=== PATIENT | female | born 1970 | race Caucasian/White ===

== ENCOUNTER 2018-01-07 05:47 | Day surgery (SDC) | payer OTHER ==
[2018-01-07] MEDS ORDERED: ceFAZolin 2 GM/SWFI 2 GM/20 ML SYR IVP ONE (06:02)
[2018-01-07] MEDS ORDERED: LR 1,000 ML IV SCH (06:02)
[2018-01-07] MEDS: ceFAZolin 2 GM/DEXTROSE 100 ML IV ONE ×2 (06:46→07:27)
[2018-01-07] MEDS ORDERED: EPINEPHrine 1 MG/ML INJ ONE (06:47)
[2018-01-07] MEDS ORDERED: BUPIVACAINE 0.5% 30 ML SDV ONE (06:48)
--- NOTE | 2018-01-07 06:58 | PDHPUP ---
History & Physical Update H&P update statement: This history and physical update is based on an assessment of the patient which was completed after admission or registration (within 24 hours), but prior to the surgery/procedure. H&P update: H&P reviewed & patient examined, no change in patient's condition since H&P completed
--- NOTE | 2018-01-07 06:59 | PDANEPAE ---
ANE History of Present Illness L knee arthroscopy ANE Past Medical History - Cardiovascular History Hx Hypertension: No Hx Arrhythmias: No Hx Chest Pain: No Hx Coronary Artery / Peripheral Vascular Disease: No Hx CHF / Valvular Disease: No Hx Palpitations: No - Pulmonary History Hx COPD: No Hx Asthma/Reactive Airway Disease: No Hx Recent Upper Respiratory Infection: No Hx Oxygen in Use at Home: No Hx Sleep Apnea: No Pulmonary History Comment: Pt. reports wheezing with colds, improved with Albuterol - Neurologic History Hx Cerebrovascular Accident: No Hx Seizures: No Hx Dementia: No - Endocrine History Hx Diabetes: No Obesity: severe - Renal History Hx Renal Disorders: No - Liver History Hx Hepatic Disorders: No - Neurological & Psychiatric Hx Hx Neurological and Psychiatric Disorders: Yes Neurological / Psychiatric History Comment: Depression, on Bupropion - Cancer History Hx Cancer: Yes Cancer History Comment: skin cancer - Congenital Disorder History Hx Congenital Disorders: No - GI History GERD: no Hx Gastrointestinal Disorders: No - Chronic Pain History Chronic Pain: No - Surgical History Prior Surgeries: right knee scope 1986. "bump" removed from forehead ANE Review of Systems Review of Systems: - Exercise capacity METS (RN): 4 METS ANE Patient History - Allergies Allergies/Adverse Reactions: No Allergies [NKDA] Allergy (Verified 01/06/18 16:44) - Home Medications Home Medications: Ibuprofen [Advil] 200 mg PO PRN PRN 01/07/18 [Last Taken 1 Week Ago ~12/31/17] - NPO status NPO Since - Liquids (Date): 01/06/18 NPO Since - Liquids (Time): 22:00 NPO Since - Solids (Date): 01/06/18 NPO Since - Solids (Time): 20:15 - Anes Hx Anes Hx: no prior problems - Smoking Hx Smoking Status: Never smoked Marijuana use: No - Alcohol Use Alcohol Use: Rarely - Family Anes Hx Family Anes Hx: none Family Hx Anesthesia Complications: none. ANE Labs/Vital Signs - Vital Signs Blood Pressure: 157/96 Heart Rate: 100 Respiratory Rate: 18 O2 Sat (%): 95 Height: 172.72 cm Weight: 136.078 kg ANE Physical Exam - Airway Neck exam: FROM Mallampati Score: Class 1 Mouth exam: normal dental/mouth exam - Pulmonary Pulmonary: clear to auscultation - Cardiovascular Cardiovascular: regular rate and rhythym - ASA Status ASA Status: II ANE Anesthesia Plan Anesthesia Plan: general endotracheal anesthesia (Increased risk of pulmonary complications discussed.)
[2018-01-07] MEDS ORDERED: MIDAZOLAM 2 MG/2 ML VIAL ONE (07:04)
[2018-01-07] MEDS ORDERED: MIDAZOLAM 2 MG/2 ML VIAL IVP ONE (07:04)
[2018-01-07] MEDS ORDERED: REMIFENTANIL HCL 1 MG VIAL ONE ×2 (07:10→08:13)
[2018-01-07] MEDS ORDERED: fentaNYL 100 MCG/2 ML INJ ONE (07:10)
[2018-01-07] MEDS ORDERED: PROPOFOL/EMULSION 500 MG/50 ML BOTTLE IV ONE (07:10)
[2018-01-07] MEDS ORDERED: ONDANSETRON 4 MG/2 ML VIAL IVP PRN ×2 (07:50→08:39)
[2018-01-07] MEDS ORDERED: ALBUTEROL 3 ML DEYVIAL IH PRN (07:50)
[2018-01-07] MEDS ORDERED: oxyCODONE IR 5 MG TAB PO PRN (07:50)
[2018-01-07] MEDS ORDERED: NALOXONE HCL 0.4 MG/ML INJ IVP PRN (07:50)
[2018-01-07] MEDS ORDERED: ACETAMINOPHEN 500 MG TAB PO PRN (07:50)
[2018-01-07] MEDS ORDERED: HYDROCODONE/APAP 5/325 TAB PO PRN (07:50)
[2018-01-07] MEDS ORDERED: fentaNYL 100 MCG/2 ML INJ IVP PRN (07:50)
[2018-01-07] MEDS ORDERED: PROPOFOL 200 MG/20 ML VIAL ONE (08:13)
[2018-01-07] MEDS ORDERED: SUGAMMADEX SODIUM 200 MG/2 ML VIAL IVP ONE (08:22)
[2018-01-07] MEDS ORDERED: ONDANSETRON 4 MG/2 ML VIAL ONE (08:28)
[2018-01-07] MEDS ORDERED: ONDANSETRON DISINTEGRATING 4 MG TAB PO PRN (08:39)
[2018-01-07] MEDS ORDERED: OXYCODONE/APAP 5/325 TAB PO PRN (08:39)
--- NOTE | 2018-01-07 08:44 | POSTOPPROG ---
Post Op Note Date of Operation: 01/07/18 Surgeon: Lakesha Lozano [facility] Coordinator: Sharon Villareal Anesthesiologist: Dr. Goldsmith Anesthesia: GET(General Endotracheal) Pre-op Diagnosis: left knee pain, meniscal tear Post-op Diagnosis: bilateral meniscal tears Procedure: partial bilateral meniscectomies Inf/Abcess present in the surg proc area at time of surgery?: No EBL: Minimal Complications: none
--- NOTE | 2018-01-07 08:46 | SOAPPROG ---
SOAP Progress Note Assessment/Plan: Assessment/Plan: 47y/o female s/p left knee partial bilateral meniscectomies - orders as written - elevate and ice extremity - home when discharge criteria met - post-operative activity and care discussed - call with issues or concerns 01/07/18 08:44 Subjective: No pain, doing well Objective: Vital Signs Temp Pulse Resp BP Pulse Ox 37.0 C 100 18 157/96 H 95 01/07/18 06:13 01/07/18 07:47 01/07/18 07:47 01/07/18 07:47 01/07/18 07:47 NAD, well appearing, no distress EOMi, face symmetric MAEx4 incisions clean, dressed ICD10 Worksheet Patient Problems: Problems Problem Status Onset Meniscal injury Acute - ICD10 Problem Qualifiers (1) Meniscal injury
[2018-01-07 09:14] VITALS: BP 139/72
--- NOTE | 2018-01-07 09:25 | GOP ---
[f rep st] OPERATIVE REPORT DATE OF OPERATION: 01/07/2018 SURGEON: Lakesha Lozano MD GLOBAL LOGISTICS MANAGER: Sharon Villareal PMariposaAMariposa-Cherri. ANESTHESIA: General. PREOPERATIVE DIAGNOSIS: Bilateral meniscus tears, early degenerative arthritis, left knee. POSTOPERATIVE DIAGNOSIS: Bilateral meniscus tears, early degenerative arthritis, left knee. PROCEDURE PERFORMED: Arthroscopy, partial bilateral meniscectomy, left knee. FINDINGS: The diagnostic arthroscopy of the left knee was performed with the following findings. Th e patient had early degenerative change in the patellofemoral joint. 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 There were some areas of full-thickness cartilage loss. The medial compartment was entered and the patient had grade 2 chondromalacia of the medial femoral condyle and medial tibial plateau. There was a tear in the posterior horn of the medial meniscus. This was trimmed back to a stable rim. Approximately 25% of the medial meniscus was excised. The meniscal tear extended to the posterior root. The ACL was visualized in the intercondylar notch and noted to be intact. The lateral compartment was entered an d the patient was noted to have a bucket-handle tear of the anterior horn of the lateral meniscus. T his was trimmed back to a stable rim. Approximately 40% of the lateral meniscus was excised. The re mainder of the lateral meniscus was normal. The patient had normal articular cartilage on the latera l tibial plateau. In the area of the bucket-handle tear there was a chondral defect on the lateral f emoral condyle measuring approximately 4 x 8 mm. This was full thickness. There were loose flaps of articular cartilage along the edges of this area which were debrided. ESTIMATED BLOOD LOSS: Minimal. DESCRIPTION OF PROCEDURE: The patient was taken to the operating room, placed in supine position on the operating table. Following induction of adequate general inhalation anesthesia, the knee and leg were prepped and draped in the usual sterile manner. The patient received 2 g of IV Ancef. The art hroscope was introduced through a lateral portal and the instrumentation through the medial portal. A diagnostic arthroscopy was performed with the above-noted findings. Our attention was turned 1st t o the pathology in the medial compartment. The medial meniscus was trimmed with the baskets and the shaver. It was trimmed back to a stable rim. The instruments were then placed laterally and the fan e procedure was repeated. At the completion of the procedure the instrumentation was removed and the knee was injected with 20 cc of 0.5% Marcaine with epinephrine. The patient tolerated the procedure well. There were no complications. Estimated blood loss minimal. Final sponge and needle counts w ere correct. The patient was transported to the recovery room in good condition. /[id number]/MODL
--- NOTE | 2018-01-07 10:49 | POSTANESTH ---
Post Anesthetic Evaluation Cardiovascular Status: Similar to Pre-Op Cond Respiratory Status: Normal, Stable Level of Consciousness/Mental Status: Can Participate in Eval Pain Control: Adequate, Prn Tx Ordered Nausea/Vomiting Control: Adequate, Prn Tx Ordered Complications Possibly Related to Anesthesia: None Noted
== END 2018-01-07 10:10 | disposition home or self-care (01) ==
LOC: FSGY 05:47
PROVIDERS: ATTEND Orthopaedic Surgery
PROC: 0MQP4ZZ Repair Left Knee Bursa and Ligament, Percutaneous Endoscopic Approach (ICD-10-PCS; principal; 2018-01-07 07:15)
DX: M23.232 Derangement of other medial meniscus due to old tear or injury, left knee (principal); M23.242 Derangement of anterior horn of lateral meniscus due to old tear or injury, left knee; M22.42 Chondromalacia patellae, left knee; M17.12 Unilateral primary osteoarthritis, left knee
CPT/HCPCS: J0171; J0690; J2250; J2405; J2704; J3010